=== PATIENT | male | born 1950 | race Hispanic/Latino ===

== ENCOUNTER 2018-12-27 14:23 | Outpatient (CLI) | payer MEDICARE ==
--- NOTE | 2018-12-27 16:32 | SJPRAD ---
CERVICAL SPINE THREE VIEWS: HISTORY: Cervical radiculopathy. COMPARISON: None. FINDINGS: The cervical vertebrae maintain height and alignment. There are mild to moderate degenerative change s. Slight anterolisthesis at C3-C4, measured at 2 to 3 mm. Prominent osteophytes are seen anteriorl y with larger bridging osteophytes noted at the C5-C6 and C6-C7 levels. Loss of disk space at C5-C6 and C6-C7. Facet hypertrophy. Linear soft tissue calcifications seen in the soft tissues posterior to the spinous processes at the C4-C5 level. IMPRESSION: Moderate degenerative changes, as described. POS: [facility]
== END 2018-12-27 14:24 | disposition home or self-care (01) ==
LOC: MWLC RAD 14:23
PROVIDERS: ATTEND Family Medicine
DX: M47.22 Other spondylosis with radiculopathy, cervical region (principal)

== ENCOUNTER 2019-01-06 09:32 | Outpatient (CLI) | payer MEDICARE ==
--- NOTE | 2019-01-06 13:34 | MRI ---
MRI OF CERVICAL SPINE PERFOERD WITHOUT CONTRAST ENHANCEMENT: 12/27/18 HISTORY: Neck and left shoulder pain and tingling. The vertebral bodies are normal in height. Disc space height appears fairly well preserved. C2-3: Degenerative facet changes without canal or foraminal stenosis. C3-4: The canal shows mild stenosis. Degenerative facet changes are associated with moderately severe right sided foraminal narrowing. C4-5: The canal shows some mild degree of stenosis and moderate bilateral foraminal narrowing with po sterior osteophytic bar, uncovertebral and facet hypertrophic changes. C5-6: Broad based posterior osteophytic bar and disc bulge is noted at this level. A very severe rufino l stenosis and severe bilateral foraminal narrowing particularly pronounced on the left. C6-7: Disc bulge and posterior osteophytic bar at this level causing moderately severe canal stenosis , marked bilateral foraminal narrowing slightly worse on the left. C7-T1: There is an asymmetric right disc osteophyte complex with marked right sided foraminal narrowi ng at this level. IMPRESSION: Multilevel areas of canal and foraminal stenosis with the most severe canal narrowing being very sev ere canal narrowing at the C5-6 level. POS: OFF
== END 2019-01-06 09:33 | disposition home or self-care (01) ==
LOC: BICMRI 09:32
PROVIDERS: ATTEND Family Medicine
DX: M54.12 Radiculopathy, cervical region (principal); M48.02 Spinal stenosis, cervical region
CPT/HCPCS: 72141

== ENCOUNTER 2019-02-27 14:40 | Outpatient (CLI) | payer MEDICARE ==
--- NOTE | 2019-02-27 16:12 | RAD ---
CERVICAL SPINE FOUR VIEWS: HISTORY: Neck pain times many years. TECHNIQUE: Lateral neutral, Swimmer's, flexion and extension views are submitted for interpretation. FINDINGS: There is no prevertebral soft tissue swelling. The predental space is normal. There is moderate loss of disk space height and osteophyte formation at C5-C6 and at C6-C7. Limited evaluation of the cervic othoracic junction on all the four images provided. Spondylolisthesis. C3-C4: There is 1.7 mm of anterolisthesis in the neutral position, 3.6 mm of anterolisthesis upon fle xion, 1.6 mm of anterolisthesis upon extension. IMPRESSION: Degenerative changes of the cervical spine as above. POS: [facility]
== END 2019-02-27 14:41 | disposition home or self-care (01) ==
LOC: TBSIIMAG 14:40
PROVIDERS: ATTEND Neurological Surgery
DX: M54.2 Cervicalgia (principal); M47.812 Spondylosis without myelopathy or radiculopathy, cervical region
CPT/HCPCS: 72040

== ENCOUNTER 2019-04-24 07:20 | Outpatient (CLI) | payer MEDICARE ==
[2019-04-24 16:15] LABS: Hemoglobin 13.2 g/dL (14.0-18.0); Mean Corpuscular HGB CONC 34.1 g/dL (32.0-36.0); Mean Corpuscular Hemoglobin 32.4 pg (27.0-31.0); Mean Corpuscular Volume 94.9 fL (78.0-98.0); Mean Platelet Volume 8.4 fL (7.4-10.4); Platelet Count 175 thou/uL (130-400); RBC Distribution Width 12.2 % (11.5-14.5); Red Blood Cell (RBC) Count 4.07 mill/uL (4.70-6.10); White Blood Cell (WBC) Count 7.4 thou/uL (4.8-10.8)
[2019-04-24 16:17] LABS: INR-International Normal Ratio 1.2; PTT 30.7 SEC (22.9-36.1)
== END 2019-04-24 07:21 | disposition home or self-care (01) ==
LOC: LABBT 07:20
PROVIDERS: ATTEND Neurological Surgery
DX: Z01.812 Encounter for preprocedural laboratory examination (principal); M48.02 Spinal stenosis, cervical region; M54.12 Radiculopathy, cervical region
CPT/HCPCS: 85027; 85610; 85730

== ENCOUNTER 2019-04-24 13:00 | Inpatient (IN) | payer MEDICARE ==
[2019-04-24 14:19] VITALS: BMI 29.0
[2019-04-28] MEDS ORDERED: Sodium Chloride 0.9% 10 ML ONE (06:11)
[2019-04-28] MEDS ORDERED: Thrombin 5000 UNITS/5 ML VIAL ONE (06:11)
[2019-04-28] MEDS ORDERED: Fentanyl 100 MCG/2 ML VIAL ONE ×2 (06:52→09:49)
[2019-04-28] MEDS ORDERED: Famotidine/PF 20 mg/2ml Vial ONE (06:52)
[2019-04-28] MEDS ORDERED: Famotidine 20 MG TAB ONE (06:52)
--- NOTE | 2019-04-28 07:42 | HP ---
REASON FOR ADMISSION: Here for neck surgery. HISTORY OF PRESENT ILLNESS: Toño Cain is a 68-year-old gentleman, who came to see us in our Neurosurgery Clinic with significant neck pain and left arm weakness and myelopathy. Imaging suggested cord compression. We offered him a surgical intervention to prevent further neurological deterioration. PAST MEDICAL HISTORY: Hepatitis C, diabetes, and dyslipidemia. PAST SURGICAL HISTORY: Appendectomy. ADMISSION MEDICATIONS: 1. Atorvastatin. 2. Glipizide. 3. PRN dextromethorphan. ALLERGIES: NO KNOWN DRUG ALLERGIES. FAMILY HISTORY: He has no family history of complications with anesthesia. Both parents are in their 80s. He has 1 brother with alcoholic liver disease and 2 siblings with coronary artery bypass grafting. SOCIAL HISTORY: Mr. Cain is a former smoker up until 2002, but has had no nicotine exposure since. He is retired from being a river transportation worker. He is a , has 4 children. REVIEW OF SYMPTOMS: Otherwise, negative. PHYSICAL EXAMINATION: VITAL SIGNS: Mr. Cain is 5 feet and 7 inches tall and is 165 pounds. NEUROLOGIC: Cranial nerves are working well. There is no cognitive dysfunction or evidence of dysphasia. He has left greater than right arm extensor weakness including wrist, finger extensors, and there is some intrinsic hand weakness as well. There is a nondermatomal sensory loss, worse on the left than the right. There is also more prominence of that sensory loss in C5 and C6 with the entire hand is affected as well. IMAGING FINDINGS AND TEST RESULTS: Cervical spinal stenosis at C3-C4, C4-C5, C5-C6, and C6-C7. There is a critically severe stenosis with T2 signal change in the cord from disk disease at C4-C5 and C5-C6. IMPRESSION: Cervical intervertebral disk disease with myeloradiculopathy. We will take Mr. Cain to the operating room for anterior cervical diskectomy and fusion. Informed Consent: I discussed indications, risks, benefits, alternatives and expected outcomes from surgery. The risks discussed included, but were not limited to, bleeding, infection, CSF leak, damage to the trachea, esophagus, vocal cords. Dysphagia, spinal cord injury, wheelchair dependence, ventilator dependence, stroke, major blood vessel injury, anesthesia complications, and . Long-term risks include need for future surgery and hardware failure. Mr. Cain understands the risks and wants to proceed. Job ID: [id number]
[2019-04-28] MEDS ORDERED: HYDROmorphone 2 MG/ML VIAL SLOW IVP PRN (10:29)
[2019-04-28] MEDS ORDERED: Promethazine HCl 25 MG/ML VIAL SLOW IVP PRN (10:29)
[2019-04-28] MEDS ORDERED: Meperidine HCl/PF 25 MG/ML VIAL SLOW IVP PRN (10:29)
[2019-04-28] MEDS ORDERED: Promethazine HCl 25 MG/ML VIAL IM PRN ×2 (10:29→11:33)
[2019-04-28] MEDS ORDERED: Dexamethasone 20 MG/5 ML VIAL ONE (10:30)
[2019-04-28] MEDS ORDERED: Glycopyrrolate 0.2 MG/ML 5 ML SYRINGE ONE (10:30)
[2019-04-28] MEDS ORDERED: Ondansetron PF 4 MG/2 ML Vial ONE (10:30)
[2019-04-28] MEDS ORDERED: Ketorolac Tromethamine 30 MG/ML VIAL ONE (10:30)
[2019-04-28] MEDS ORDERED: Rocuronium Bromide 10 MG/ML (10ML VIAL) ONE (10:30)
[2019-04-28] MEDS ORDERED: Labetalol HCl 100 MG/20 ML VIAL ONE (10:30)
[2019-04-28] MEDS ORDERED: Lidocaine 1% PF 5 ML VIAL ONE (10:30)
[2019-04-28] MEDS ORDERED: PROPOFOL 200 MG/20 ML VIAL ONE (10:30)
[2019-04-28] MEDS ORDERED: Rocuronium Bromide 50 MG/5 ML VIAL ONE (10:34)
[2019-04-28] MEDS ORDERED: HYDROmorphone 2 MG/ML VIAL ONE (11:22)
[2019-04-28] MEDS ORDERED: Acetaminophen 650 MG Suppository PR PRN (11:33)
[2019-04-28] MEDS ORDERED: diphenhydrAMINE 50 MG/ML VIAL IVP PRN (11:33)
[2019-04-28] MEDS ORDERED: traMADol HCl 50 MG TAB PO PRN ×2 (11:33)
[2019-04-28] MEDS ORDERED: Milk Of Magnesia 30 ML UDCUP PO PRN (11:33)
[2019-04-28] MEDS ORDERED: diphenhydrAMINE 25 MG CAP PO PRN (11:33)
[2019-04-28] MEDS ORDERED: Promethazine HCl 12.5 MG SUPP PR PRN (11:33)
[2019-04-28] MEDS ORDERED: tiZANidine HCl 4 MG TAB PO PRN (11:33)
[2019-04-28] MEDS ORDERED: Morphine 4 MG/ML VIAL SLOW IVP PRN (11:33)
[2019-04-28] MEDS ORDERED: Morphine 2 MG/ML SYRINGE SLOW IVP PRN (11:33)
[2019-04-28] MEDS ORDERED: Bisacodyl 10 MG SUPP PR PRN (11:33)
[2019-04-28] MEDS ORDERED: HYDROcodone/Acetaminophen 7.5/325 mg Tablet PO PRN ×2 (11:33)
[2019-04-28] MEDS ORDERED: Promethazine 25 MG TAB PO PRN (11:33)
[2019-04-28] MEDS ORDERED: Ondansetron PF 4 MG/2 ML Vial IVP PRN (11:33)
[2019-04-28] MEDS ORDERED: Acetaminophen 325 MG TAB PO PRN (11:33)
[2019-04-28] MEDS ORDERED: Scopolamine 1.5 mg/72 hour Patch TD SCH (11:45)
--- NOTE | 2019-04-28 11:56 | OP ---
DATE OF PROCEDURE: 04/28/2019 RESIDENT CARE PROVIDER: None. PREOPERATIVE INDICATION: Prevent neurological deterioration. PREOPERATIVE DIAGNOSES: Multilevel cervical stenosis from intervertebral disk disease, causing cord compression and myelopathy. POSTOPERATIVE DIAGNOSES: Multilevel cervical stenosis from intervertebral disk disease, causing cord compression and myelopathy. PROCEDURES PERFORMED: 1. Anterior cervical diskectomy, intervertebral arthrodesis, placement of intervertebral biomechanical devices, and anterior cervical plating at C4-C5, C5-C6, and C6-C7. 2. Local morselized autograft. 3. Morselized allograft. 4. Operating microscope. PREOPERATIVE MEDICATIONS: Ancef 2 g IV. DRAIN NUMBERS: Zero. DRAIN TYPE: None. DESCRIPTION OF PROCEDURE: The patient was brought to the operating room. General endotracheal anesthesia was induced. The patient's neck was kept in normal anatomic alignment and his head was carefully positioned on a doughnut-shaped headrest. A lateral fluoro radiograph was used to plan our incision. The right side of the neck was sterilely prepped and draped. We opened with a 10 blade knife and controlled bleeding with bipolar cautery. We dissected sharply to the platysma and cut this muscle in line with our incision. We continued our dissection medial to the sternocleidomastoid and lateral to the trachea and esophagus. We arrived at the prevertebral space and put a marker at C4-C5. We took a lateral fluoro radiograph to confirm the levels upon which we were operating. We then elevated the longus colli muscles off the anterior surface of C4, C5, C6, and C7, and placed a self-retaining retractor beneath them at C6. We placed distraction pins at C5 and C7 and distracted across both of the intervening interspaces. We incised the interspaces with a 15 blade knife and removed disk contents using curettes and rongeurs. The operative microscope was brought in to the field. Under microscopic magnification using microsurgical techniques, we removed the remainder of the intervertebral disks. We accessed the ventral epidural space with a micro curette, and using a Kerrison rongeur, we removed posterior osteophytes across the entire interspace along with the posterior longitudinal ligament from one neural foramen all the way to the other until the dura was decompressed. This was done at C5-C6 and at C6-C7. We then used a curette to prepare the endplates for grafting. A bone rasp was used to measure the height of each interspace. The C6-C7 interspace measured 8 mm and the C5-C6 interspace measured 5 mm. The appropriately-sized PEEK intervertebral grafts were brought into the field. Osteophytes removed from the anterior and posterior edges of the vertebral bodies. They were cleaned off soft tissue attachments, morcellized, and added into demineralized bone matrix as part of our fusion substrate. The substrate was packed into the center of the intervertebral grafts and these were advanced into the respective interspaces under radiographic guidance to the appropriate depth. We then removed distraction pin from C7 and moved it up to C4. We distracted across the C4-C5 interspace, incised it, and removed disk contents as we had before at the other 2 interspaces. With a micro curette, we accessed the ventral epidural space and we removed posterior osteophytes and posterior longitudinal ligament with Kerrison rongeurs from one neural foramen to the other. The dura was well decompressed. We turned our attention to arthrodesis. Curettes were used to remove our cartilaginous cap and a bone rasp measured the height of this interspace to 7 mm. A 7-mm PEEK intervertebral graft was brought into the field. This was loaded with our demineralized bone matrix and morselized autograft and advanced into the interspace under radiographic guidance to the appropriate depth. We then removed both distraction pins. The operative microscope was taken out of the field. A 51-mm anterior cervical plate was brought into the field. We affixed the plate to the vertebral bodies using fixed angle screws at C7 and variable angle screws at C6, C5, and C4, 14 mm screws attached to the plate nicely. AP and lateral fluoro radiographs confirmed adequate positioning of this instrumentation. We irrigated with bacitracin irrigation. We closed the wound in anatomical layers and we applied a sterile dressing. This was a clean case, no contamination. Job ID: [id number]
[2019-04-28] MEDS: CEFAZOLIN 2 GM in Premix Bag 1 BAG IVPB SCH ×2 (14:21→20:59)
[2019-04-28] MEDS: Sodium Chloride 0.9% 1,000 ML IV SCH (14:22)
[2019-04-28] MEDS ORDERED: Tamsulosin HCl 0.4 MG CAP PO SCH (19:15)
[2019-04-29] MEDS: Sodium Chloride 0.9% 1,000 ML IV SCH (02:34)
[2019-04-29] MEDS ORDERED: Tamsulosin HCl 0.4 MG CAP PO SCH (06:00)
[2019-04-29] MEDS ORDERED: CEFAZOLIN 2 GM in Premix Bag 1 BAG IVPB SCH (06:00)
[2019-04-29 11:29] VITALS: BP 150/84; TEMP 98.2
--- NOTE | 2019-04-30 03:02 | DIS ---
DATE OF ADMISSION: 04/28/2019 DATE OF DISCHARGE: 04/29/2019 The patient is a 68-year-old male, who underwent C4-C7 ACDF by Dr. Rowe on 04/28/2019. Following the surgery, he was transitioned to the Med/Surg floor, where his pain was well controlled with p.o. medications, he was tolerating a regular diet. He did have some issues with urinary retention and required p.r.n. straight cath x2. He was also treated with Flomax and this has improved significantly. He is now urinating without any difficulty. He has mobilized appropriately in the department and feels as if he is ready to go home. On exam this morning, he is awake, alert, in no acute distress. He has free active range of motion of all extremities. No focal motor weakness. His incision is clean, dry, and intact. We will plan to dismiss the patient to home. I discussed home care precautions. The patient should wear his C-collar for all out of bed activities. He should follow up with Dr. Rowe in 2 weeks. Prescriptions have been called in by Dr. Rowe for Tylenol #3 and Zanaflex. Job ID: [id number]
== END 2019-04-29 12:58 | disposition home or self-care (01) | DRG 472 ==
LOC: SURG A 04-28 05:35 → SJJU 04-28 13:06
PROVIDERS: ADMIT Neurological Surgery; ATTEND Neurological Surgery
PROC: 0RG2070 Fusion of 2 or more Cervical Vertebral Joints with Autologous Tissue Substitute, Anterior Approach, Anterior Column, Open Approach (ICD-10-PCS; principal; 2019-04-28)
PROC: 0RB30ZZ Excision of Cervical Vertebral Disc, Open Approach (ICD-10-PCS; 2019-04-28)
DX: M48.02 Spinal stenosis, cervical region (principal); M50.023 Cervical disc disorder at C6-C7 level with myelopathy; G95.20 Unspecified cord compression; E11.9 Type 2 diabetes mellitus without complications; E78.5 Hyperlipidemia, unspecified; B19.20 Unspecified viral hepatitis C without hepatic coma; Z90.49 Acquired absence of other specified parts of digestive tract; Z79.899 Other long term (current) drug therapy; Z87.891 Personal history of nicotine dependence; R33.9 Retention of urine, unspecified
CPT/HCPCS: 76000; C1713; C1776; J0131; J0690; J1100; J1170; J1885; J2001; J2405; J2704; J3010; J3490; S0028

== ENCOUNTER 2019-07-06 13:03 | Outpatient (CLI) | payer MEDICARE ==
--- NOTE | 2019-07-06 14:10 | RAD ---
CERVICAL SPINE SERIES THREE VIEWS: 07/06/19 HISTORY: Neck pain and left arm pain. COMPARISON: A 02/27/19 exam. The patient has undergone anterior cervical fusion. A plate and screws have been placed from C4 to C7 . Markers of disc implant are within the confines of the disc level. Some mild degenerative changes o f the C3-4 level are present. IMPRESSION: Postop changes of the spine. POS: [facility]
== END 2019-07-06 13:04 | disposition home or self-care (01) ==
LOC: TBSIIMAG 13:03
PROVIDERS: ATTEND Neurological Surgery
DX: M50.00 Cervical disc disorder with myelopathy, unspecified cervical region (principal); Z98.890 Other specified postprocedural states
CPT/HCPCS: 72040

== ENCOUNTER 2020-10-09 06:55 | Outpatient (CLI) | payer MEDICARE | END 2020-10-09 06:56 | disposition home or self-care (01) | LOC: BICULT 06:55 | PROVIDERS: ATTEND Nurse Practitioner Family | DX: Z13.6 Encounter for screening for cardiovascular disorders (principal) | CPT/HCPCS: 76775 ==

== ENCOUNTER 2021-06-20 09:35 | Outpatient (CLI) | payer MEDICARE | END 2021-06-20 09:36 | disposition home or self-care (01) | LOC: BICRAD 09:35 | PROVIDERS: ATTEND Family Medicine | DX: M89.9 Disorder of bone, unspecified (principal) | CPT/HCPCS: 70250 ==

== ENCOUNTER 2021-07-11 15:07 | Emergency (ER) | payer MEDICARE ==
[2021-07-11 15:57] LABS: #Basophils 0.1 thou/uL (0.0-0.2); #Eosinphils 0.2 thou/uL (0.0-0.7); #Lymphocytes 3.1 thou/uL (1.20-3.40); #Monocytes 0.5 thou/uL (0.11-0.59); #Neutrophils 3.4 thou/uL (1.40-6.50); %Basophils 1.2 % (0.0-1.0); %Eosinophils 2.2 % (0.0-10.0); %Lymphocytes 42.6 % (21.0-51.0); %Monocytes 7.2 % (0.0-10.0); %Neutrophils 46.9 % (42.0-75.0); Mean Corpuscular Hemoglobin 32.7 pg (27.0-31.0); Mean Corpuscular Volume 96.3 fL (78.0-98.0); Mean Platelet Volume 7.9 fL (7.4-10.4); Platelet Count 164 thou/uL (130-400); RBC Distribution Width 12.1 % (11.5-14.5); Red Blood Cell (RBC) Count 3.97 mill/uL (4.70-6.10); White Blood Cell (WBC) Count 7.2 thou/uL (4.8-10.8)
[2021-07-11 16:19] LABS: ALT (SGPT) 17 U/L (8-55); AST (SGOT) 20 U/L (5-34); Albumin 4.2 g/dL (3.4-4.8); Alkaline Phosphatase 69 U/L (40-110); Anion Gap 13 mmol/L (10-20); BUN (Urea Nitrogen) 19 mg/dL (8.4-25.7); Bilirubin, Total 0.6 mg/dL (0.2-1.2); Calc. Creatinine Clearance 0 mL/min (70-130); Calcium 9.4 mg/dL (7.8-10.44); Carbon Dioxide 24 mmol/L (23-31); Chloride 107 mmol/L (98-107); Glucose 90 mg/dL (80-115); Lipase 44 U/L (8-78); Potassium 3.8 mmol/L (3.5-5.1); Protein, Total 7.2 g/dL (5.8-8.1); Sodium 140 mmol/L (136-145)
== END 2021-07-11 17:00 | disposition home or self-care (01) ==
LOC: ERS 15:07
DX: R07.81 Pleurodynia (principal); E78.5 Hyperlipidemia, unspecified; E11.9 Type 2 diabetes mellitus without complications; Z79.899 Other long term (current) drug therapy
CPT/HCPCS: 71045; 80053; 83690; 84484; 85025; 93005